=== PATIENT | female | born 1970 | race Caucasian/White ===

== ENCOUNTER 2018-03-15 07:23 | Emergency (ER) | payer SELFPAY ==
[~2018-03-15] VITALS: Ht 170.2 cm; Wt 80.0 kg
[~2018-03-15 07:23] MED LIST: ASPI325T PO; AUGM875T PO; CARV12.5 PO; FURO1TAB93 PO; LISI5 PO; POTA-243 PO
[2018-03-15 07:29] VITALS: BP 138/87; PULSE 100; RESP 18; TEMP 97.7; O2SAT 99
[2018-03-15 07:40] VITALS: BP_SYST 124; BP_SYST 138; BP_DIAS 79; BP_DIAS 87; PULSE 77; RESP 18; O2SAT 98
[2018-03-15] MEDS ORDERED: SODIUM CHLORIDE 0.9% FLUSH 10 ML FLUSH IVF PRN (07:45)
[2018-03-15 07:49] VITALS: BP_SYST 124; BP_SYST 138; BP_DIAS 79; BP_DIAS 87; PULSE 100; RESP 18; O2SAT 99
--- NOTE | 2018-03-15 07:51 | PD ---
HPI Chief Complaint: Cardiac Complaint Time Seen by Provider: 07:39 Travel History International Travel<30 days: No Contact w/Intl Traveler<30days: No Traveled to known affect area: No History of Present Illness HPI 47 y/o female presents stating she has been feeling off for the past couple months but it has been worse over the past couple weeks. She thought it was related to her anxiety but today when her defibrillator went off now she is not sure. She states that she felt like her heart was beating fast before it went off. She states after when off she developed some chest pain and was given aspirin and nitroglycerin. She denies any other concurrent complaints at this time. She states her last heart workup was when she was here. She states her smoke jumper is now Dr. Skinner. She denies specific modifying factors. Quality is palpitations. Severity is progressive. Duration is couple of weeks. PFSH Past Medical History Hx Anticoagulant Therapy: Yes (ASA) Anxiety: Yes Heart Rhythm Problems: Yes Cardiovascular Problems: Yes (PT HAS A DEFRIBILATOR) Congestive Heart Failure: Yes Coronary Artery Disease: No Diabetes: No Diminished Hearing: No Hypertension: Yes Tetanus Vaccination: > 5 Years Influenza Vaccination: No ?: Not LMP: 03/16/2018 : 4 Para: 2 Past Surgical History Abdominal Surgery: Yes () Cardiac Surgery: Yes Section: Yes Social History Alcohol Use: No Tobacco Use: Yes Substance Use: No Allergies-Medications (Allergen,Severity, Reaction): Coded Allergies: No Known Allergies (Verified , 02/21/16) Reported Meds & Prescriptions Reported Meds & Active Scripts Active Reported Aspirin 81 Mg Chew 81 Mg PO DAILY Spironolactone 25 Mg Tab 25 Mg PO DAILY Coreg (Carvedilol) 12.5 Mg Tab 25 Mg PO BID Lasix (Furosemide) 20 Mg Tab 20 Mg PO DAILY Review of Systems Except as stated in HPI: all other systems reviewed are Neg Physical Exam Narrative GENERAL: 47-year-old female in no apparent distress SKIN: Focused skin assessment warm/dry. HEAD: Atraumatic. Normocephalic. EYES: Pupils equal and round. No scleral icterus. No injection or drainage. ENT: No nasal bleeding or discharge. Mucous membranes pink and moist. NECK: Trachea midline. No JVD. CARDIOVASCULAR: Regular rate and rhythm. No murmur appreciated. RESPIRATORY: No accessory muscle use. Clear to auscultation. Breath sounds equal bilaterally. GASTROINTESTINAL: Abdomen soft, non-tender, nondistended. MUSCULOSKELETAL: No obvious deformities. No clubbing. No cyanosis. No edema. NEUROLOGICAL: Awake and alert. No obvious cranial nerve deficits. Motor grossly within normal limits. Normal speech. Data Data Last Documented VS Vital Signs Date Time Temp Pulse Resp B/P (MAP) Pulse Ox O2 Delivery O2 Flow Rate FiO2 03/15/18 09:00 97.7 64 18 129/75 (93) 97 Room Air Orders Orders Electrocardiogram (03/15/18 07:39) B-Type Natriuretic Peptide (03/15/18 07:39) Ckmb (Isoenzyme) Profile (03/15/18 07:39) Complete Blood Count With Diff (03/15/18 07:39) Comprehensive Metabolic Panel (03/15/18 07:39) Magnesium (Mg) (03/15/18 07:39) Prothrombin Time / Inr (Pt) (03/15/18 07:39) Act Partial Throm Time (Ptt) (03/15/18 07:39) Troponin I (03/15/18 07:39) Chest, Single Ap (03/15/18 07:39) Ecg Monitoring (03/15/18 07:39) Bilateral Bp Monitoring (03/15/18 07:39) Iv Access Insert/Monitor (03/15/18 07:39) Oximetry (03/15/18 07:39) Sodium Chloride 0.9% Flush (Ns Flush) (03/15/18 07:45) Ed Discharge Order (03/15/18 10:23) Labs Laboratory Tests Test 03/15/18 07:40 White Blood Count 9.6 TH/MM3 Red Blood Count 5.12 MIL/MM3 Hemoglobin 14.6 GM/DL Hematocrit 43.5 % Mean Corpuscular Volume 85.0 FL Mean Corpuscular Hemoglobin 28.6 PG Mean Corpuscular Hemoglobin Concent 33.6 % Red Cell Distribution Width 13.6 % Platelet Count 199 TH/MM3 Mean Platelet Volume 9.9 FL Neutrophils (%) (Auto) 57.5 % Lymphocytes (%) (Auto) 32.1 % Monocytes (%) (Auto) 5.5 % Eosinophils (%) (Auto) 3.9 % Basophils (%) (Auto) 1.0 % Neutrophils # (Auto) 5.5 TH/MM3 Lymphocytes # (Auto) 3.1 TH/MM3 Monocytes # (Auto) 0.5 TH/MM3 Eosinophils # (Auto) 0.4 TH/MM3 Basophils # (Auto) 0.1 TH/MM3 CBC Comment DIFF FINAL Differential Comment Prothrombin Time 11.2 SEC Prothromb Time International Ratio 1.1 RATIO Activated Partial Thromboplast Time 29.3 SEC Blood Urea Nitrogen 8 MG/DL Creatinine 1.00 MG/DL Random Glucose 154 MG/DL Total Protein 7.3 GM/DL Albumin 3.8 GM/DL Calcium Level 8.3 MG/DL Magnesium Level 1.8 MG/DL Alkaline Phosphatase 87 U/L Aspartate Amino Transf (AST/SGOT) 12 U/L Alanine Aminotransferase (ALT/SGPT) 22 U/L Total Bilirubin 0.8 MG/DL Sodium Level 138 MEQ/L Potassium Level 3.7 MEQ/L Chloride Level 106 MEQ/L Carbon Dioxide Level 17.7 MEQ/L Anion Gap 14 MEQ/L Estimat Glomerular Filtration Rate 59 ML/MIN Total Creatine Kinase 32 U/L Troponin I 0.03 NG/ML B-Type Natriuretic Peptide 34 PG/ML MDM Medical Decision Making Medical Screen Exam Complete: Yes Emergency Medical Condition: Yes Medical Record Reviewed: Yes (Past history confirmed, 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 Stable examination. Differential Diagnosis V. tach, SVT, A. fib with RVR Narrative Course Will check blood work, chest x-ray and have her pacemaker interrogated. Patient states this is the first time and has gone off [facility] states patient had shock for V. fib discriminatory zone as her heart rate went over 230. He states this is the first time that she was shocked and it was 1 time. appears sinus on strip, will discuss with dr brody skinner talked with [facility] and states can go home, Patient denies any new complaints and states that they are feeling better. Patient happy with care, all questions answered. Patient knows that follow up is incumbent on them and to return to the emergency room immediately if new or worsening symptoms develop. Patient given strict return precautions, vitals reviewed and are normal , agrees to further workup as an outpatient. Physician Communication Physician Communication dr skinner states to increase coreg to 25 mg bid and will see in office this week Diagnosis Primary Impression: Tachycardia Additional Impression: AICD discharge Patient Instructions: General Instructions Additional Instructions: increase Coreg to 25 mg twice a day, your current pill will be 2 pills twice a day, return as needed, follow with dr skinner as scheduled Med/Other Pt SpecificInfo: Existing Med Changed Disposition: DISCHARGE HOME Condition: Stable Julieta Guadarrama MD Mar 15, 2018 07:51
[2018-03-15 08:04] LABS: AUTOMATED NEUTROPHIL # 5.5 TH/MM3 (1.8-7.7); BASOPHIL # 0.1 TH/MM3 (0-0.2); EOSINOPHIL # 0.4 TH/MM3 (0-0.4); EOSINOPHIL % 3.9 % (0.0-4.0); HEMATOCRIT 43.5 % (35.0-46.0); HEMOGLOBIN 14.6 GM/DL (11.6-15.3); LYMPH % 32.1 % (9.0-44.0); LYMPHOCYTE # 3.1 TH/MM3 (1.0-4.8); MEAN CORPUSCULAR HEMOGLOBIN 28.6 PG (27.0-34.0); MEAN CORPUSCULAR HGB CONC 33.6 % (32.0-36.0); MEAN PLATELET VOLUME 9.9 FL (7.0-11.0); MONO % 5.5 % (0.0-8.0); MONOCYTE # 0.5 TH/MM3 (0-0.9); NEUT % 57.5 % (16.0-70.0); PLATELET COUNT 199 TH/MM3 (150-450); RED BLOOD COUNT 5.12 MIL/MM3 (4.00-5.30); RED CELL DISTRIBUTION WIDTH 13.6 % (11.6-17.2); WHITE BLOOD COUNT 9.6 TH/MM3 (4.0-11.0)
[2018-03-15] MEDS ORDERED: FURO1TAB62 PO (08:09)
[2018-03-15] MEDS ORDERED: CARV12.5 PO (08:09)
[2018-03-15] MEDS ORDERED: ASPI-183 PO (08:09)
[2018-03-15] MEDS ORDERED: SPIR25TA PO (08:09)
[2018-03-15 08:11] LABS: INTERNATIONAL NORMALIZED RATIO 1.1 RATIO; PROTHROMBIN TIME - PATIENT 11.2 SEC (9.8-11.6)
[2018-03-15] MEDS ORDERED: ASPI-516 PO (08:12)
[2018-03-15 08:22] LABS: ALBUMIN 3.8 GM/DL (3.4-5.0); AST (GOT) 12 U/L (15-37); BICARBONATE 17.7 MEQ/L (21.0-32.0); BLOOD UREA NITROGEN 8 MG/DL (7-18); CALCIUM 8.3 MG/DL (8.5-10.1); CHLORIDE 106 MEQ/L (98-107); GLOMERULAR FILTRATION RATE 59 ML/MIN (>89); GLUCOSE,RANDOM 154 MG/DL (74-106); MAGNESIUM 1.8 MG/DL (1.5-2.5); SODIUM (NA) 138 MEQ/L (136-145)
[2018-03-15 08:27] LABS: ALKALINE PHOSPHATASE 87 U/L (45-117); ALT (GPT) 22 U/L (10-53); TOTAL BILIRUBIN ADULT 0.8 MG/DL (0.2-1.0); TOTAL PROTEIN 7.3 GM/DL (6.4-8.2); TROPONIN I 0.03 NG/ML (0.02-0.05)
[2018-03-15 09:00] VITALS: BP 129/75; PULSE 64; RESP 18; TEMP 97.7; O2SAT 97
--- NOTE | 2018-03-15 09:01 | RADRPT ---
EXAM DATE: 03/15/2018 8:35 AM EDT AGE/SEX: 47 years / Female INDICATIONS: Patient states her defibrillator shocked her this morning, denies chest pain or shortne ss of breath, has a little vertigo CLINICAL DATA: This is the patient's initial encounter. Patient reports that signs and symptoms have been present for 1 day and indicates a pain score of 1/10. MEDICAL/SURGICAL HISTORY: Congestive heart failure. history of V-tach . defibrillator placed 3 years ago [place] [facility] [place]. . FINDINGS: A single AP view of the chest demonstrates the lungs to be symmetrically aerated without evidence of mass, infiltrate or effusion. No evidence of pneumothorax. The cardiomediastinal contours are unremar kable. Osseous structures are intact. There is a defibrillator device overlying the left chest. No s ignificant changes compared to the prior exam. CONCLUSION: No acute intrathoracic disease. Stable examination. Electronically signed by: Lance Byrnes MD 03/15/2018 8:59 AM EDT
[2018-03-15 10:30] VITALS: BP 124/77; TEMP 97.8
--- NOTE | 2018-03-15 17:17 | EKG ---
Date Performed: 03/15/2018 Time Performed: 07:30:41 PTAGE: 47 years EKG: Sinus rhythm LOW QRS VOLTAGE IN EXTREMITY LEADS MODERATE ST DEPRESSION ABNORMAL ECG PREVIOUS TRACING 04/24/15 @ 12.33 Since the previous tracing, no significant change noted DOCTOR: Ashutosh Shirley Interpretating Date/Time 03/15/2018 17:15:58
== END 2018-03-15 10:30 | disposition home or self-care (01) ==
LOC: NEPE 07:23
DX: R00.0 Tachycardia, unspecified (principal); R94.31 Abnormal electrocardiogram [ECG] [EKG]; F41.9 Anxiety disorder, unspecified; I11.0 Hypertensive heart disease with heart failure; I50.9 Heart failure, unspecified; Z95.810 Presence of automatic (implantable) cardiac defibrillator; Z79.82 Long term (current) use of aspirin; Z79.899 Other long term (current) drug therapy; Z72.0 Tobacco use
CPT/HCPCS: 71045; 80053; 82550; 83735; 83880; 84484; 85025; 85610; 85730; 93005

== ENCOUNTER 2018-03-15 21:59 | Emergency (ER) | payer OTHER ==
[~2018-03-15] VITALS: Ht 170.2 cm; Wt 73.0 kg
[~2018-03-15 21:59] MED LIST changes: +ASPI-183 PO; +ASPI-516 PO; +FURO1TAB62 PO; +SPIR25TA PO
[2018-03-15 22:07] VITALS: BP 138/91; PULSE 68; RESP 16; TEMP 98; O2SAT 97
[2018-03-15] MEDS ORDERED: SODIUM CHLORIDE 0.9% FLUSH 10 ML FLUSH IVF PRN (22:15)
[2018-03-15] MEDS ORDERED: ASPIRIN 81 MG CHEW TAB PO ONE (22:15)
--- NOTE | 2018-03-15 22:17 | PD ---
HPI Chief Complaint: Medical Clearance Time Seen by Provider: 22:10 Travel History International Travel<30 days: No Contact w/Intl Traveler<30days: No Traveled to known affect area: No History of Present Illness HPI 47-year-old female presents to the emergency department from home by EMS transport for evaluation of anxiety diaphoresis sweating of her palms and hands without chest pain. Patient states she has a pacemaker defibrillator that was placed 3 years ago and is followed by chief nursing executive Dr. Bush. Patient was seen earlier today for same complaint and shortly thereafter onset of symptoms was defibrillated. Patient was identified by [facility] loan servicing representative to had an episode of ventricular tachycardia that did receive a sustained defibrillation with a rate of 230. Patient had resolution of symptoms. Patient's case was discussed with her chief nursing executive Dr. Bush who also discussed the case with the [facility] wrap and the plan was to increase her Coreg from 12.5 mg twice daily to 25 mg twice daily. Patient states she did take 25 mg of Coreg this morning and took her evening dose of Coreg. Patient also took a dose of Lorazepam 0.25 mg. Patient states still felt anxious until paramedics arrived and then in route to the hospital patient noted that her symptoms of diaphoresis and palpitations seem to have resolved. Ongoing tobacco use. Patient is unable to identify exacerbating or alleviating factors. Patient has no chest pain at this time no shortness of breath at this time does not feel palpitations at this time has no diaphoresis at this time. Patient's had no recent illness long distance travel protracted bedrest. Patient has no clotting disorder. Patient has no fever chills. Patient is scheduled to see her chief nursing executive on . [facility] Past Medical History Narrative Medical Anxiety pacemaker defibrillator dilated cardiomyopathy hypertension ; tobacco use; nursing notes reviewed Hx Anticoagulant Therapy: Yes (ASA) Anxiety: Yes Heart Rhythm Problems: Yes Cardiovascular Problems: Yes (PT HAS A DEFRIBILATOR) Congestive Heart Failure: Yes Coronary Artery Disease: No Diabetes: No Diminished Hearing: No Hypertension: Yes ?: Not : 2 Para: 1 Past Surgical History Abdominal Surgery: Yes () Cardiac Surgery: Yes (DEFRIBILATION) Section: Yes (X 1) Gynecologic Surgery: Yes Social History Alcohol Use: No Tobacco Use: Yes (10 CIGARRETES WEEK) Substance Use: No Allergies-Medications (Allergen,Severity, Reaction): Coded Allergies: No Known Allergies (Verified Adverse Reaction, Unknown, 03/15/18) Reported Meds & Prescriptions Reported Meds & Active Scripts Active Reported Aspirin 81 Mg Chew 81 Mg PO DAILY Spironolactone 25 Mg Tab 25 Mg PO DAILY Coreg (Carvedilol) 12.5 Mg Tab 25 Mg PO BID Lasix (Furosemide) 20 Mg Tab 20 Mg PO DAILY Review of Systems Except as stated in HPI: all other systems reviewed are Neg Physical Exam Narrative GENERAL: Well-developed well-nourished female no acute distress no respiratory distress SKIN: Warm and dry. HEAD: Normocephalic. EYES: No scleral icterus. No injection or drainage. NECK: Supple, trachea midline. No JVD or lymphadenopathy. CARDIOVASCULAR: Regular rate and rhythm without murmurs, gallops, or rubs. RESPIRATORY: Breath sounds equal bilaterally. No accessory muscle use. GASTROINTESTINAL: Abdomen soft, non-tender, nondistended. MUSCULOSKELETAL: No cyanosis, or edema. BACK: Nontender without obvious deformity. No CVA tenderness. Data Data Last Documented VS Vital Signs Date Time Temp Pulse Resp B/P (MAP) Pulse Ox O2 Delivery O2 Flow Rate FiO2 03/15/18 22:07 98.0 68 16 138/91 (107) 97 Orders Orders Electrocardiogram (03/15/18 22:10) Basic Metabolic Panel (Bmp) (03/15/18 22:10) B-Type Natriuretic Peptide (03/15/18 22:10) Ckmb (Isoenzyme) Profile (03/15/18 22:10) Complete Blood Count With Diff (03/15/18 22:10) Magnesium (Mg) (03/15/18 22:10) Prothrombin Time / Inr (Pt) (03/15/18 22:10) Act Partial Throm Time (Ptt) (03/15/18 22:10) Troponin I (03/15/18 22:10) Chest, Single Ap (03/15/18 22:10) Ecg Monitoring (03/15/18 22:10) Bilateral Bp Monitoring (03/15/18 22:10) Iv Access Insert/Monitor (03/15/18 22:10) Oximetry (03/15/18 22:10) Oxygen Administration (03/15/18 22:10) Aspirin Chew (Aspirin Chew) (03/15/18 22:15) Sodium Chloride 0.9% Flush (Ns Flush) (03/15/18 22:15) Labs Laboratory Tests Test 03/15/18 22:20 White Blood Count 10.6 TH/MM3 Red Blood Count 4.97 MIL/MM3 Hemoglobin 14.4 GM/DL Hematocrit 41.9 % Mean Corpuscular Volume 84.5 FL Mean Corpuscular Hemoglobin 29.0 PG Mean Corpuscular Hemoglobin Concent 34.4 % Red Cell Distribution Width 13.6 % Platelet Count 199 TH/MM3 Mean Platelet Volume 9.7 FL Neutrophils (%) (Auto) 54.2 % Lymphocytes (%) (Auto) 35.3 % Monocytes (%) (Auto) 7.4 % Eosinophils (%) (Auto) 2.5 % Basophils (%) (Auto) 0.6 % Neutrophils # (Auto) 5.8 TH/MM3 Lymphocytes # (Auto) 3.8 TH/MM3 Monocytes # (Auto) 0.8 TH/MM3 Eosinophils # (Auto) 0.3 TH/MM3 Basophils # (Auto) 0.1 TH/MM3 CBC Comment DIFF FINAL Differential Comment Blood Urea Nitrogen 8 MG/DL Creatinine 0.78 MG/DL Random Glucose 103 MG/DL Calcium Level 9.1 MG/DL Magnesium Level 1.9 MG/DL Sodium Level 140 MEQ/L Potassium Level 3.8 MEQ/L Chloride Level 108 MEQ/L Carbon Dioxide Level 22.6 MEQ/L Anion Gap 9 MEQ/L Estimat Glomerular Filtration Rate 78 ML/MIN Total Creatine Kinase 33 U/L Troponin I 0.08 NG/ML MDM Medical Decision Making Medical Screen Exam Complete: Yes Emergency Medical Condition: Yes Medical Record Reviewed: Yes Interpretation(s) EKG normal sinus rhythm rate [address] elevation ST segment flattening and depression inferior laterally Troponin I: 0.08, mildly elevated most likely reflects recent defibrillation from AICD pacemaker earlier today--this has been discussed with patient's chief nursing executive Last Impressions Chest X-Ray 03/15/182209 Signed Impressions: CONCLUSION: 1. No acute abnormality or interval change. CBC & BMP Diagram 03/15/18 22:20 Calcium Level 9.1 #, Magnesium Level 1.9 Vital Signs Date Time Temp Pulse Resp B/P (MAP) Pulse Ox O2 Delivery O2 Flow Rate FiO2 6/19/18 22:07 98.0 68 16 138/91 (762) 28 Differential Diagnosis Palpitations, arrhythmia, A. fib, V. 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 Bush is aware of EKG and cardiac enzyme of troponin I 0.08 electrolytes chest x-ray and recommends patient be discharged back to home and to keep her appointment with Dr. Bush in the office on ; reports that she feels troponin of 0.08 is consistent with earlier defibrillation by her pacemaker defibrillator and does not need serial enzymes. Critical Care Narrative Aggregate critical care time was 30 minutes. Time to perform other separately billable procedures was not included in the critical care time. My time did not include minutes spent treating any other patients simultaneously or on activities that did not directly contribute to the patient's treatment. The services I provided to this patient were to treat and/or prevent clinically significant deterioration that could result in: Arrhythmia, ACS, AR, I provided critical care services requiring my management, as noted below: Chart data review, documentation time, medication orders and management, vital sign assessments/reviewing monitor data, ordering and reviewing lab tests, ordering and interpreting/reviewing x-rays and diagnostic studies, care of the patient and discussion of the patient with the admitting physicians. Physician Communication Physician Communication discussed with Dr Bush--opt follow up as planned Diagnosis Primary Impression: Intermittent palpitations Additional Impression: Anxiety Referrals: Katheryn Bush MD 2 days Keep scheduled appointment Patient Instructions: General Instructions Additional Instructions: Continue current medications as presently prescribed Follow-up with Dr. Bush your chief nursing executive as scheduled on Return the emergency department for concerns or change in condition Med/Other Pt SpecificInfo: No Change to Meds Disposition: 01 DISCHARGE HOME Condition: Stable Lauren Mccormack MD Mar 15, 2018 22:17
[2018-03-15 22:41] LABS: AUTOMATED NEUTROPHIL # 5.8 TH/MM3 (1.8-7.7); BASOPHIL # 0.1 TH/MM3 (0-0.2); BASOPHIL % 0.6 % (0.0-2.0); EOSINOPHIL # 0.3 TH/MM3 (0-0.4); EOSINOPHIL % 2.5 % (0.0-4.0); HEMATOCRIT 41.9 % (35.0-46.0); HEMOGLOBIN 14.4 GM/DL (11.6-15.3); LYMPH % 35.3 % (9.0-44.0); LYMPHOCYTE # 3.8 TH/MM3 (1.0-4.8); MEAN CELL VOLUME 84.5 FL (80.0-100.0); MEAN CORPUSCULAR HGB CONC 34.4 % (32.0-36.0); MEAN PLATELET VOLUME 9.7 FL (7.0-11.0); MONO % 7.4 % (0.0-8.0); MONOCYTE # 0.8 TH/MM3 (0-0.9); NEUT % 54.2 % (16.0-70.0); PLATELET COUNT 199 TH/MM3 (150-450); RED BLOOD COUNT 4.97 MIL/MM3 (4.00-5.30); RED CELL DISTRIBUTION WIDTH 13.6 % (11.6-17.2); WHITE BLOOD COUNT 10.6 TH/MM3 (4.0-11.0)
--- NOTE | 2018-03-15 22:47 | RADRPT ---
EXAM DATE: 03/15/2018 10:44 PM EDT AGE/SEX: 47 years / Female INDICATIONS: Chest pain. CLINICAL DATA: This is the patient's initial encounter. Patient reports that signs and symptoms have been present for 1 day and indicates a pain score of 6/10. MEDICAL/SURGICAL HISTORY: . Congestive heart failure.history of V-tach . Defibrillator COMPARISON: [facility], CHEST SINGLE AP, 03/15/2018. . FINDINGS: Stable single lead AICD device. No new focal pleural or parenchymal opacities. Cardiomediastinal cont ours are within normal limits. Bony thorax is intact. CONCLUSION: 1. No acute abnormality or interval change. Electronically signed by: Amadou Yates MD 03/15/2018 10:46 PM EDT
[2018-03-15 22:50] LABS: BICARBONATE 22.6 MEQ/L (21.0-32.0); CALCIUM 9.1 MG/DL (8.5-10.1); CREATININE 0.78 MG/DL (0.50-1.00); MAGNESIUM 1.9 MG/DL (1.5-2.5)
[2018-03-15 22:53] LABS: TROPONIN I 0.08 NG/ML (0.02-0.05)
[2018-03-15 23:24] LABS: INTERNATIONAL NORMALIZED RATIO 1.1 RATIO; PROTHROMBIN TIME - PATIENT 11.2 SEC (9.8-11.6)
[2018-03-16 01:13] VITALS: BP 129/74
--- NOTE | 2018-03-16 13:56 | EKG ---
Date Performed: 03/15/2018 Time Performed: 22:14:35 PTAGE: 47 years EKG: Sinus rhythm MODERATE ST DEPRESSION ABNORMAL ECG PREVIOUS TRACING : 03/15/2018 07.30 DOCTOR: Bryan Arellano Interpretating Date/Time 03/16/2018 13:54:31
== END 2018-03-16 01:14 | disposition home or self-care (01) ==
LOC: NEPC 21:59
DX: R00.2 Palpitations (principal); F41.9 Anxiety disorder, unspecified; Z95.810 Presence of automatic (implantable) cardiac defibrillator; I11.0 Hypertensive heart disease with heart failure; F17.210 Nicotine dependence, cigarettes, uncomplicated; R94.31 Abnormal electrocardiogram [ECG] [EKG]
CPT/HCPCS: 71045; 80048; 82550; 83735; 83880; 84484; 85025; 85610; 85730; 93005

== ENCOUNTER 2018-08-16 16:23 | Observation (INO) ==
--- NOTE | 2018-08-16 16:38 | ED ---
HPI General Chief Complaint: Arrhythmia / Palpitations Stated Complaint: cardiac.evac Time Seen by Provider: 08/16/18 16:32 Source: patient and EMS Mode of arrival: EMS Limitations: no limitations History of Present Illness The patient is a 47-year-old female with history of CHF, A. fib and a cardiac defibrillator in place that was brought in by EMS for evaluation after she was shocked 3 consecutive times by her defibrillator in addition to one more on the way here while in EMS. Patient stated that she was having palpitations and then she was shocked. She denies any chest pain but states that she does have some shortness of breath. No other complaints at this time. MD Complaint: Reports shortness of breath Onset (ago): hour(s) (1) Context: Denies recent illness, occurred during exertion and medication noncompliance Severity: similar to previous episodes Consistency/Duration: now resolved Associated symptoms: Reports palpitations and lightheadedness; Denies chest pain , cough, wheezing, orthopnea, paresthesias, diaphoresis, nausea/vomiting, syncope, chest congestion and dizziness Treatment prior to arrival: Reports none Related Data Home Medications Medication Instructions Recorded Confirmed alprazolam [Xanax] 0.25 mg PO TID PRN 05/26/18 08/16/18 carvedilol [Coreg] 18.75 mg PO BID 05/26/18 08/16/18 furosemide [Lasix] 20 mg PO DAILY 05/26/18 08/16/18 lisinopril 5 mg PO DAILY 05/26/18 08/16/18 rivaroxaban [Xarelto] 20 mg PO DAILY 05/26/18 08/16/18 spironolactone 25 mg PO DAILY 05/26/18 08/16/18 Allergies Allergy/AdvReac Type Severity Reaction Status Date / Time No Known Allergies Allergy Verified 07/12/18 16:45 Review of Systems ROS: all other systems reviewed are negative PMFSH History History Provided By: Patient, Medical Record and Director Of Food And Beverage Services / EMT Medical History Medical History Cardiomyopathy (Acute) Mitral regurgitation (Acute) CHF (congestive heart failure) (Acute) Cardiac defibrillator in place (Acute) History of atrial fibrillation (Acute) History of ventricular tachycardia (Acute) Hypertension (Acute) Surgical History Surgical History Hx of section (Acute) Family History Family History Mother Heart problem Father Heart problem Social History Social History Substance History: No History of Abuse Smoking Status: Former smoker (Quit 2016) How Often Do You Have a Drink Containing Alcohol: Never Recent Travel in [facility] within the Last 8 Weeks: No Recent Out of Country Travel within the Last 8 Weeks: No Exam Narrative Exam Narrative: GENERAL: Alert and oriented no distress SKIN: Focused skin assessment warm/dry. HEAD: Atraumatic. Normocephalic. EYES: Pupils equal and round. No scleral icterus. No injection or drainage. ENT: No nasal bleeding or discharge. Mucous membranes pink and moist. NECK: Trachea midline. No JVD. CARDIOVASCULAR: Regular rate and rhythm. No murmur appreciated. RESPIRATORY: No accessory muscle use. Clear to auscultation. Breath sounds equal bilaterally. GASTROINTESTINAL: Abdomen soft, non-tender, nondistended. Hepatic and splenic margins not palpable. MUSCULOSKELETAL: No obvious deformities. No clubbing. No cyanosis. No edema. NEUROLOGICAL: Awake and alert. No obvious cranial nerve deficits. Motor grossly within normal limits. Normal speech. PSYCHIATRIC: Appropriate mood and affect; insight and judgment normal. Course Reevaluation(s) Reevaluation #1: Really no distress hemodynamically stable sinus rhythm on the monitor. [facility] defibrillator interrogated is at bedside. Time: 16:56 Initial Documented Vital Signs Temperature 98.3 F 08/16/18 16:30 Pulse Rate 85 08/16/18 16:30 Respiratory Rate 20 08/16/18 16:30 Blood Pressure 127/75 08/16/18 16:30 Pulse Oximetry 100 08/16/18 16:30 Last Documented Vital Signs Temperature 98.3 F 08/16/18 16:30 Pulse Rate 85 08/16/18 16:30 Respiratory Rate 20 08/16/18 16:40 Blood Pressure 127/75 08/16/18 16:30 Pulse Oximetry 100 08/16/18 16:30 Medical Decision Making MDM Narrative Medical decision making narrative: His defibrillator was interrogated and appears that the patient had 3 shocks today secondary to A. fib with RVR and [place] II 130 bpm. Hemodynamically stable with a rate in the 80s normal sinus rhythm mild hypokalemia of 3.4 will replace with p.o. by admitting team troponin was 0.03 and CK 40. Placed under under observation Medical Screen Exam Complete: Yes Emergency Medical Condition: Yes Medical Records Medical records reviewed: Yes I reviewed the patient's medical records. Lab Data Lab results reviewed: Yes I reviewed the patient's lab results. Result diagrams: 08/16/18 16:36 08/16/18 16:36 Lab Results 08/16/18 08/16/18 08/16/18 Range/Units 16:36 16:36 16:36 WBC 7.0 (4.0-11.0) th/mm3 RBC 4.61 (4.00-5.30) mil/mm3 Hgb 13.7 (11.6-15.3) gm/dL Hct 40.4 (35.0-46.0) % MCV 87.6 (80.0-100.0) fL MCH 29.6 (27.0-34.0) pg MCHC 33.8 (32.0-36.0) % RDW 13.3 (11.6-17.2) % Plt Count 167 (150-450) th/mm3 MPV 10.4 (7.0-11.0) fL Neut % (Auto) 51.5 (16.0-70.0) % Lymph % (Auto) 37.2 (9.0-44.0) % [place] % (Auto) 6.2 (0.0-8.0) % Eos % (Auto) 4.4 H (0.0-4.0) % Baso % (Auto) 0.7 (0.0-2.0) % Neut # (Auto) 3.6 (1.8-7.7) th/mm3 Lymph # (Auto) 2.6 (1.0-4.8) th/mm3 [place] # (Auto) 0.4 (0.0-0.9) th/mm3 Eos # (Auto) 0.3 (0.0-0.4) th/mm3 Baso # (Auto) 0.1 (0.0-0.2) th/mm3 WBC Differential . Differential Comment Auto diff final PT 14.4 H (9.8-11.6) sec INR 1.4 Ratio APTT 41.5 H (23.4-31.7) sec Sodium 136 (136-145) meq/L Potassium 3.4 L (3.5-5.1) meq/L Chloride 103 (98-107) meq/L Carbon Dioxide 25.5 (21.0-32.0) meq/L Anion Gap 8 (5-15) meq/L BUN 14 (7-18) mg/dL Creatinine 1.02 H (0.50-1.00) mg/dL Estimated GFR 58 L (>89) mL/min Random Glucose 161 H (74-106) mg/dL Calcium 8.9 (8.5-10.1) mg/dL Total Creatine Kinase (26-192) U/L Troponin I (0.02-0.05) ng/mL B-Natriuretic Peptide (0-100) pg/mL 08/16/18 08/16/18 Range/Units 16:36 16:36 WBC (4.0-11.0) th/mm3 RBC (4.00-5.30) mil/mm3 Hgb (11.6-15.3) gm/dL Hct (35.0-46.0) % MCV (80.0-100.0) fL MCH (27.0-34.0) pg MCHC (32.0-36.0) % RDW (11.6-17.2) % Plt Count (150-450) th/mm3 MPV (7.0-11.0) fL Neut % (Auto) (16.0-70.0) % Lymph % (Auto) (9.0-44.0) % [place] % (Auto) (0.0-8.0) % Eos % (Auto) (0.0-4.0) % Baso % (Auto) (0.0-2.0) % Neut # (Auto) (1.8-7.7) th/mm3 Lymph # (Auto) (1.0-4.8) th/mm3 [place] # (Auto) (0.0-0.9) th/mm3 Eos # (Auto) (0.0-0.4) th/mm3 Baso # (Auto) (0.0-0.2) th/mm3 WBC Differential Differential Comment PT (9.8-11.6) sec INR Ratio APTT (23.4-31.7) sec Sodium (136-145) meq/L Potassium (3.5-5.1) meq/L Chloride (98-107) meq/L Carbon Dioxide (21.0-32.0) meq/L Anion Gap (5-15) meq/L BUN (7-18) mg/dL Creatinine (0.50-1.00) mg/dL Estimated GFR (>89) mL/min Random Glucose (74-106) mg/dL Calcium (8.5-10.1) mg/dL Total Creatine Kinase 40 (26-192) U/L Troponin I 0.03 (0.02-0.05) ng/mL B-Natriuretic Peptide 26 (0-100) pg/mL Imaging Data Radiologist's impression: Chest X-Ray 08/16/18 16:33 CONCLUSION: Stable appearance with no acute cardiopulmonary disease. ECG Data EKG Prior to Arrival: Yes Attestation: I personally reviewed and interpreted this ECG as follows: Interpretation: NSR [address]-T wave abnormalities, MT interval 156 ms, QTc 414 ms, no signs of acute ischemia. Discharge Plan Discharge Disposition Patient Disposition: 30 Still Patient Discharge Condition Condition: Stable Discharge Details Diagnosis: Shockable heart rhythm detected by automated external defibrillator, Atrial fibrillation with RVR Physicians Team ED Provider: Ventura Martin Primary Care Provider: UNKNOWN, Attending Provider: Thony Calderon Other Providers: Katheryn Bush I Discharge Interventions Interventions: Vital Signs Last Done: 08/16/18 16:40 Status ED Status: Admitted Observation Patient
--- NOTE | 2018-08-16 16:53 | XR ---
EXAM DATE: 08/16/2018 4:48 PM EST AGE/SEX: 47 years / Female INDICATIONS: Defibrillator shock 3 times today. CLINICAL DATA: This is the patient's initial encounter. Patient reports that signs and symptoms have been present for 1 day and indicates a pain score of 0/10. MEDICAL/SURGICAL HISTORY: Hypertension. Congestive heart failure. Afib. . Defibrillator. COMPARISON: [facility], CHEST 1V SINGLE AP, 07/12/2018. . FINDINGS: A single AP view of the chest demonstrates the lungs to be symmetrically aerated without evidence of mass, infiltrate or effusion. The cardiomediastinal contours are unremarkable. Osseous structures a re intact. The left-sided transvenous pacer remains in place. CONCLUSION: Stable appearance with no acute cardiopulmonary disease. Electronically signed by: Angus Grady MD 08/16/2018 4:51 PM EST
[2018-08-16 17:02] LABS: Baso # (Auto) 0.1 th/mm3 (0.0-0.2); Baso % (Auto) 0.7 % (0.0-2.0); Eos # (Auto) 0.3 th/mm3 (0.0-0.4); Eos % (Auto) 4.4 % (0.0-4.0); Hematocrit 40.4 % (35.0-46.0); Hemoglobin 13.7 gm/dL (11.6-15.3); Lymph # (Auto) 2.6 th/mm3 (1.0-4.8); Lymph % (Auto) 37.2 % (9.0-44.0); Mean Corpuscular HGB Conc 33.8 % (32.0-36.0); Mean Corpuscular Hemoglobin 29.6 pg (27.0-34.0); Mean Corpuscular Volume 87.6 fL (80.0-100.0); Mean Platelet Volume 10.4 fL (7.0-11.0); Mono # (Auto) 0.4 th/mm3 (0.0-0.9); Mono % (Auto) 6.2 % (0.0-8.0); Neut # (Auto) 3.6 th/mm3 (1.8-7.7); Neut % (Auto) 51.5 % (16.0-70.0); Platelet Count 167 th/mm3 (150-450); Red Blood Count 4.61 mil/mm3 (4.00-5.30); Red Cell Distribution Width 13.3 % (11.6-17.2)
[2018-08-16 17:14] LABS: Calcium 8.9 mg/dL (8.5-10.1); Carbon Dioxide 25.5 meq/L (21.0-32.0); Potassium 3.4 meq/L (3.5-5.1)
[2018-08-16 17:18] LABS: Troponin I 0.03 ng/mL (0.02-0.05)
[2018-08-16 17:30] LABS: Activated Partial Thrombo Time 41.5 sec (23.4-31.7); INR 1.4 Ratio; Prothrombin Time 14.4 sec (9.8-11.6)
--- NOTE | 2018-08-16 18:16 | P.HP ---
History of Present Illness Service: [facility] Primary Care Physician: UNKNOWN Chief Complaint: "I was shocked" History of Present Illness: 47-year-old female with past medical history significant for cardiomyopathy status post AICD placement in 2014, ventricular fibrillation, MVR, CHF, HTN, and anxiety who presents to the emergency department via EV[facility] after being shocked by defibrillator 3 times at home. Patient reports that recently she has been under some stress since her son is requiring rehab and she has been trying to assist with arrangements. She reports that she was on the phone and shortly prior to being shot felt dizziness, lightheadedness and could feel her heart "speeding up". Patient states that early in the day she was also having some palpitations and attempted to take off of the Coreg however this did not stop AICD shock. She reports she has been having on and off shocks as well as what she describes as "weird sensations in my chest that are hard to describe". She states that it feels like there is "a basketball game going on in my chest " she also reports teeth and jaw pain when she has palpitations and feelings of her heart speeding up. Her cloth bleaching range back tender is Dr. Katheryn Bush and she was last seen in May and was due to follow-up with her again in August. She reports that ever since February of this year she feels that palpitations are more frequent and has noticed a trend that occurs between 2 and 7 PM. She reports being compliant with her medications. Denies any shortness of breath, chest pain, recent illnesses, nausea, vomiting or jaw pain. - Diagnosis (1) Shockable heart rhythm detected by automated external defibrillator (2) Heart palpitations (3) Dizziness (4) CHF (congestive heart failure) Review of Systems All other systems reviewed negative except as stated in [facility] - History History Provided By: Patient, Medical Record, Logistics Director / EMT - Medical History Medical History: Medical History (Last Reviewed 08/16/18 @ 18:16 by Harriet Steinberg) Cardiomyopathy Mitral regurgitation CHF (congestive heart failure) Cardiac defibrillator in place History of atrial fibrillation History of ventricular tachycardia Hypertension - Surgical History Surgical History: Surgical History (Last Reviewed 08/16/18 @ 18:16 by Harriet Steinberg) Hx of section - Family History Family History: Family History (Last Updated 08/16/18 @ 18:19 by Harriet Steinberg) Mother Heart problem Father Heart problem - Social History I have reviewed the patient's Social History: Yes - Tobacco History Tobacco Use In Past 30 Days: No Smoking Status: Former smoker (Quit 2015) - Alcohol History How Often Do You Have a Drink Containing Alcohol: Never - Substance Use History Substance History: No History of Abuse - Travel History Recent Travel in the [place] Within the Last 8 Weeks: No Recent Travel Out of the Country Within the Last 8 Weeks: No - Immunization History Tetanus Immunization: Unsure Medications and Allergies Allergies Allergy/AdvReac Type Severity Reaction Status Date / Time No Known Allergies Allergy Verified 07/12/18 16:45 Home Medications Medication Instructions Recorded Confirmed Type alprazolam [Xanax] 0.25 mg PO TID PRN 05/26/18 08/16/18 History carvedilol [Coreg] 18.75 mg PO BID 05/26/18 08/16/18 History furosemide [Lasix] 20 mg PO DAILY 05/26/18 08/16/18 History lisinopril 5 mg PO DAILY 05/26/18 08/16/18 History rivaroxaban [Xarelto] 20 mg PO DAILY 05/26/18 08/16/18 History spironolactone 25 mg PO DAILY 05/26/18 08/16/18 History Exam Vital signs: Vital Signs 08/16/18 16:30 08/16/18 16:40 Temperature 98.3 F Pulse Rate 85 Respiratory Rate 20 20 Blood Pressure 127/75 Pulse Oximetry 100 Intake & Output 08/15/18 08/16/18 08/16/18 18:59 06:59 18:59 Weight 72.575 kg Narrative: GENERAL: Developed, well-nourished female in no acute distress. SKIN: Warm and dry. HEAD: Atraumatic. Normocephalic. EYES: Pupils equal and round. No scleral icterus. No injection or drainage. ENT: No nasal bleeding or discharge. Mucous membranes pink and moist. NECK: Trachea midline. No JVD. CARDIOVASCULAR: Regular rate and rhythm, noted on telemetry during my examination tachycardia with a regular rate and momentarily which then slows down to normal sinus rhythm. RESPIRATORY: No accessory muscle use. Clear to auscultation. Breath sounds equal bilaterally. GASTROINTESTINAL: Abdomen soft, non-tender, nondistended. + Bowel sounds MUSCULOSKELETAL: Extremities without clubbing, cyanosis, or edema. No obvious deformities. NEUROLOGICAL: Awake, alert, oriented x3. No obvious cranial nerve deficits. Motor grossly within normal limits. Five out of 5 muscle strength in the arms and legs. Normal speech. PSYCHIATRIC: Appropriate mood and affect; insight and judgment normal. Results - Labs CBC & Chem 7: 08/16/18 16:36 08/16/18 16:36 Labs: Laboratory Results - last 24 hr 08/16/18 08/16/18 08/16/18 16:36 16:36 16:36 WBC 7.0 RBC 4.61 Hgb 13.7 Hct 40.4 MCV 87.6 MCH 29.6 MCHC 33.8 RDW 13.3 Plt Count 167 MPV 10.4 Neut % (Auto) 51.5 Lymph % (Auto) 37.2 [place] % (Auto) 6.2 Eos % (Auto) 4.4 H Baso % (Auto) 0.7 Neut # (Auto) 3.6 Lymph # (Auto) 2.6 [place] # (Auto) 0.4 Eos # (Auto) 0.3 Baso # (Auto) 0.1 WBC Differential . Differential Comment Auto diff final PT 14.4 H INR 1.4 APTT 41.5 H Sodium 136 Potassium 3.4 L Chloride 103 Carbon Dioxide 25.5 Anion Gap 8 BUN 14 Creatinine 1.02 H Estimated GFR 58 L Random Glucose 161 H Calcium 8.9 Total Creatine Kinase Troponin I B-Natriuretic Peptide 08/16/18 08/16/18 16:36 16:36 WBC RBC Hgb Hct MCV MCH MCHC RDW Plt Count MPV Neut % (Auto) Lymph % (Auto) [place] % (Auto) Eos % (Auto) Baso % (Auto) Neut # (Auto) Lymph # (Auto) [place] # (Auto) Eos # (Auto) Baso # (Auto) WBC Differential Differential Comment PT INR APTT Sodium Potassium Chloride Carbon Dioxide Anion Gap BUN Creatinine Estimated GFR Random Glucose Calcium Total Creatine Kinase 40 Troponin I 0.03 B-Natriuretic Peptide 26 - Imaging Impressions Chest X-Ray 08/16/18 16:33 CONCLUSION: Stable appearance with no acute cardiopulmonary disease. Caprini VTE Risk Assessment Caprini VTE Risk Assessment: No/Low Risk (score <= 1) Caprini Risk Assessment Model: Point Value = 1 Point Value = 2 Point Value = 3 Point Value = 5 Age 41-60 Minor surgery BMI > 25 kg/m2 Swollen legs Varicose veins or History of unexplained or recurrent spontaneous Oral contraceptives or hormone replacement Sepsis (< 1 month) Serious lung disease, including pneumonia (< 1 month) Abnormal pulmonary function Acute myocardial infarction Congestive heart failure (< 1 month) History of inflammatory bowel disease Medical patient at bed rest Age 61-74 Arthroscopic surgery Major open surgery (> 45 min) Laparoscopic surgery (> 45 min) Malignancy Confined to bed (> 72 hours) Immobilizing plaster cast Central venous access Age >= 75 History of VTE Family history of VTE Factor V Leiden Prothrombin [id number] Lupus anticoagulant Anticardiolipin antibodies Elevated serum homocysteine Heparin-induced thrombocytopenia Other congenital or acquired thrombophilia Stroke (< 1 month) Elective arthroplasty Hip, pelvis, or leg fracture Acute spinal cord injury (< 1 month) Prophylaxis Regimen: Total Risk Factor Score Risk Level Prophylaxis Regimen 0-1 Low Early ambulation 2 Moderate Order ONE of the following: *Sequential Compression Device (SCD) *Heparin 5000 units SQ BID 3-4 Higher Order ONE of the following medications: *Heparin 5000 units SQ TID *Enoxaparin/Lovenox 40 mg SQ daily (WT < 150 kg, CrCl > 30 mL/min) *Enoxaparin/Lovenox 30 mg SQ daily (WT < 150 kg, CrCl > 10-29 mL/min) *Enoxaparin/Lovenox 30 mg SQ BID (WT < 150 kg, CrCl > 30 mL/min) AND/OR *Sequential Compression Device (SCD) 5 or more Highest Order ONE of the following medications: *Heparin 5000 units SQ TID (Preferred with Epidurals) *Enoxaparin/Lovenox 40 mg SQ daily (WT < 150 kg, CrCl > 30 mL/min) *Enoxaparin/Lovenox 30 mg SQ daily (WT < 150 kg, CrCl > 10-29 mL/min) *Enoxaparin/Lovenox 30 mg SQ BID (WT < 150 kg, CrCl > 30 mL/min) AND *Sequential Compression Device (SCD) Assessment and Plan - Assessment (1) Shockable heart rhythm detected by automated external defibrillator Code(s): I49.9 - Cardiac arrhythmia, unspecified Status: Acute (2) Heart palpitations Code(s): R00.2 - Palpitations Status: Acute (3) Dizziness Code(s): R42 - Dizziness and giddiness Status: Acute (4) CHF (congestive heart failure) Code(s): I50.9 - Heart failure, unspecified Status: Acute - Plan 47-year-old female with past medical history significant for cardiomyopathy status post AICD placement in 2014, ventricular fibrillation, MVR, CHF, HTN, and anxiety who presents to the emergency department via EVAC after being shocked by defibrillator 3 times at home. Cardiomyopathy s/p AICD Hx V. tach CHF, not exacerbated Atrial fibrillation, rate controlled -Echo from 2015 with EF 35-40% -Chest x-ray in ED negative, BNP 26, troponin negative, pending EKG -AICD interrogation -Consult cloth bleaching range back tender for further recommendations, appreciate assistance -Continue monitoring on telemetry for further episodes -Continue Xarelto, carvedilol, Lasix, spironolactone Hypertension -Continue home lisinopril, Coreg -BP stable, continue monitoring Hypokalemia -Provide replacements orally, check mag level Anxiety -Continue alprazolam as needed DVT prophylaxisXarelto Discussed Condition With: Patient and
[2018-08-16] MEDS ORDERED: Acetaminophen 325 MG Tablet PO PRN (18:18)
[2018-08-16] MEDS ORDERED: Bisacodyl 10 MG Supp RECTAL PRN (18:18)
[2018-08-16] MEDS ORDERED: Potassium Chloride 25 MEQ Effervescent Tablet PO ONE (18:28)
[2018-08-16] MEDS: Carvedilol 12.5 MG Tablet PO SCH (21:42)
[2018-08-16] MEDS: ALPRAZolam 0.25 MG Tablet PO PRN (23:51)
[2018-08-17] MEDS: Rivaroxaban 20 MG Tablet PO SCH (08:44)
[2018-08-17] MEDS: Carvedilol 12.5 MG Tablet PO SCH (08:44)
[2018-08-17] MEDS: Lisinopril 5 MG Tablet PO SCH (08:44)
[2018-08-17] MEDS: Furosemide 20 MG Tablet PO SCH (08:44)
[2018-08-17] MEDS: Spironolactone 25 MG Tablet PO SCH (08:44)
[2018-08-17 11:36] LABS: Calcium 8.7 mg/dL (8.5-10.1); Carbon Dioxide 27.5 meq/L (21.0-32.0); Potassium 3.7 meq/L (3.5-5.1)
--- NOTE | 2018-08-17 14:06 | P.PN ---
Subjective Interval history: Patient is seen lying quietly in bed. She tells me that she has had no further shocks but that she is still very tired from yesterday. No chest pain or shortness of breath. No nausea vomiting or diarrhea. No fever or chills. She does feel that anxiety contributes to her palpitations but states that yesterday she actually felt like she was doing well at controlling her anxiety and was surprised that she got shocked. Physical Exam Vital signs: Vital Signs 08/16/18 16:30 08/16/18 16:40 08/16/18 20:00 Temperature 98.3 F 97.8 F Pulse Rate 85 62 Respiratory Rate 20 20 17 Blood Pressure 127/75 107/69 Pulse Oximetry 100 96 08/16/18 21:40 08/16/18 23:46 08/17/18 02:15 Temperature 97.5 F L Pulse Rate 68 67 54 L Respiratory Rate 17 Blood Pressure 112/56 L 103/65 Pulse Oximetry 99 08/17/18 03:56 08/17/18 08:00 08/17/18 12:00 Temperature 98.8 F 98.8 F Pulse Rate 53 L 51 L 61 Respiratory Rate 17 16 16 Blood Pressure 103/67 115/61 103/58 L Pulse Oximetry 98 98 96 Intake & Output 08/16/18 08/17/18 08/17/18 18:59 06:59 18:59 Intake Total 240 / 240 Balance 240 / 240 Weight 72.575 kg 72.575 kg Intake: Oral 240 / 240 Other: # Voids 1 Weight On Admission 72.575 kg Narrative: GENERAL: Developed, well-nourished female in no acute distress. SKIN: Warm and dry. HEAD: Atraumatic. Normocephalic. CARDIOVASCULAR: Regular rate and rhythm. Mild chest wall tenderness. RESPIRATORY: No accessory muscle use. Clear to auscultation. Breath sounds equal bilaterally. GASTROINTESTINAL: Abdomen soft, non-tender, nondistended. + Bowel sounds MUSCULOSKELETAL: Extremities without clubbing, cyanosis, or edema. No obvious deformities. NEUROLOGICAL: Awake, alert, oriented x3. No obvious cranial nerve deficits. Motor grossly within normal limits. Five out of 5 muscle strength in the arms and legs. Normal speech. PSYCHIATRIC: Appropriate mood and affect; insight and judgment normal. Results - Labs CBC & Chem 7: 08/16/18 16:36 08/17/18 10:30 Laboratory Results - last 24 hr 08/16/18 08/16/18 08/16/18 16:36 16:36 16:36 WBC 7.0 RBC 4.61 Hgb 13.7 Hct 40.4 MCV 87.6 MCH 29.6 MCHC 33.8 RDW 13.3 Plt Count 167 MPV 10.4 Neut % (Auto) 51.5 Lymph % (Auto) 37.2 [place] % (Auto) 6.2 Eos % (Auto) 4.4 H Baso % (Auto) 0.7 Neut # (Auto) 3.6 Lymph # (Auto) 2.6 [place] # (Auto) 0.4 Eos # (Auto) 0.3 Baso # (Auto) 0.1 WBC Differential . Differential Comment Auto diff final PT 14.4 H INR 1.4 APTT 41.5 H Sodium 136 Potassium 3.4 L Chloride 103 Carbon Dioxide 25.5 Anion Gap 8 BUN 14 Creatinine 1.02 H Estimated GFR 58 L Random Glucose 161 H Calcium 8.9 Magnesium Total Creatine Kinase Troponin I B-Natriuretic Peptide 08/16/18 08/16/18 08/16/18 16:36 16:36 16:36 WBC RBC Hgb Hct MCV MCH MCHC RDW Plt Count MPV Neut % (Auto) Lymph % (Auto) [place] % (Auto) Eos % (Auto) Baso % (Auto) Neut # (Auto) Lymph # (Auto) [place] # (Auto) Eos # (Auto) Baso # (Auto) WBC Differential Differential Comment PT INR APTT Sodium Potassium Chloride Carbon Dioxide Anion Gap BUN Creatinine Estimated GFR Random Glucose Calcium Magnesium 2.0 Total Creatine Kinase 40 Troponin I 0.03 B-Natriuretic Peptide 26 08/17/18 10:30 WBC RBC Hgb Hct MCV MCH MCHC RDW Plt Count MPV Neut % (Auto) Lymph % (Auto) [place] % (Auto) Eos % (Auto) Baso % (Auto) Neut # (Auto) Lymph # (Auto) [place] # (Auto) Eos # (Auto) Baso # (Auto) WBC Differential Differential Comment PT INR APTT Sodium 141 Potassium 3.7 Chloride 107 Carbon Dioxide 27.5 Anion Gap 7 BUN 13 Creatinine 0.89 Estimated GFR 67 L Random Glucose 110 H Calcium 8.7 Magnesium Total Creatine Kinase Troponin I B-Natriuretic Peptide - Imaging Impressions Chest X-Ray 08/16/18 16:33 CONCLUSION: Stable appearance with no acute cardiopulmonary disease. Assessment and Plan - Assessment (1) Shockable heart rhythm detected by automated external defibrillator Code(s): I49.9 - Cardiac arrhythmia, unspecified Status: Acute (2) Heart palpitations Code(s): R00.2 - Palpitations Status: Acute (3) Dizziness Code(s): R42 - Dizziness and giddiness Status: Acute (4) CHF (congestive heart failure) Code(s): I50.9 - Heart failure, unspecified Status: Acute - Plan 47-year-old female with past medical history significant for cardiomyopathy status post AICD placement in 2014, ventricular fibrillation, MVR, CHF, HTN, and anxiety who presents to the emergency department via EVAC after being shocked by defibrillator 3 times at home. Cardiomyopathy s/p AICD Hx V. tach CHF, not exacerbated Atrial fibrillation, rate controlled -Echo from 2015 with EF 35-40% -AICD interrogation confirms shock x 3 for VF -Consult metal bonding crib attendant for further recommendations, appreciate assistance -Continue monitoring on telemetry for further episodes -Continue Xarelto, carvedilol, Lasix, spironolactone Hypertension -Continue home lisinopril, Coreg -(confirmed w/ pt that home dose is 18.5 mg twice daily) -BP stable, continue monitoring Hypokalemia; mild -Normalized with replacement Anxiety -Continue alprazolam as needed DVT prophylaxisXarelto Discharge planning: Likely home when cleared by cardiology
--- NOTE | 2018-08-17 15:18 | ECG ---
Date Performed: 08/16/2018 Time Performed: 16:33:26 PTAGE: 47 years EKG: NORMAL Sinus rhythm Inferior ST abnormality, possible ischemia Poor R-wave progression, probably due to lead placement. BORDERLINE ECG Looks similar to prior tracing PREVIOUS TRACING : 07/12/2018 18.08.28 DOCTOR: Juan Francisco Shaw Interpretating Date/Time 08/17/2018 15:18:33
[2018-08-17] MEDS: ALPRAZolam 0.25 MG Tablet PO PRN ×2 (16:24→23:08)
[2018-08-17] MEDS: Carvedilol 6.25 MG Tablet PO SCH (20:39)
[2018-08-17] MEDS ORDERED: Sodium Chloride 0.9% 2 ML Flush PRN IV.FLUSH (21:26)
[2018-08-17] MEDS: Amiodarone 200 MG Tablet PO SCH (23:08)
--- NOTE | 2018-08-18 07:20 | MB ---
cc: Katheryn Bush MD DATE: 08/17/2018 INDICATION: AICD shocks. HISTORY OF PRESENT ILLNESS: A 47-year-old white female well known to me from clinic with history of nonischemic cardiomyopathy and paroxysmal atrial fibrillation, who was admitted complaining of palpitations, found to be in atrial fibrillation with rapid ventricular response and is status post 3 shocks. The AICD device was checked and it was found to be working appropriately. The AICD disclosed that the patient was in atrial fibrillation with very rapid ventricular response. While in the hospital, she also has nonsustained ventricular tachycardia. Currently, she has no particular complaints other than fatigue and some chest discomfort. Her first troponin was negative. The only abnormality in her blood work was a potassium of 3.4. She has been compliant with medications and diet. PAST MEDICAL HISTORY: Nonischemic cardiomyopathy with ejection fraction of 25-30% with last echo performed in 2017, moderate mitral regurgitation, paroxysmal atrial fibrillation, ventricular tachycardia, status post AICD, COPD, hypertension. SOCIAL HISTORY: The patient quit smoking in 2014 and does not drink. PAST SURGICAL HISTORY: AICD placement and x 1. FAMILY HISTORY: Mother at age 64 with heart disease and father is alive with history of stroke. ADDITIONAL SOCIAL HISTORY: She is single and has 2 children. PHYSICAL EXAMINATION: GENERAL: She is in no acute distress. VITAL SIGNS: Her blood pressure is 103/58 mmHg, heart rate 51 beats per minute. HEAD AND NECK: Without JVD or carotid bruits. LUNGS: Clear to auscultation. HEART: Normal S1 and S2, without murmurs or gallops. ABDOMEN: Benign without visceromegaly or bruits. EXTREMITIES: Without edema. DATA: Chest x-ray within normal limits with no evidence of CHF. Blood work remarkable for a GFR of 67, potassium 3.4. Troponin negative x 1. INR 1.4. CBC was within normal limits. CARDIAC MEDICATIONS: Include: 1. Carvedilol 18.75 mg twice a day. 2. Lasix 20 mg daily. 3. Lisinopril 5 mg daily. 4. Xarelto 20 mg daily. 5. Spironolactone 25 mg daily. The AICD interrogation showed a normal function with 3 appropriate shocks for atrial fibrillation with rapid ventricular response. Her minimum heart rate is set at 40. ASSESSMENT AND PLAN: 1. Nonischemic cardiomyopathy without evidence of congestive heart failure. 2. Paroxysmal atrial fibrillation with rapid ventricular response, leading to ICD shocks x 3. 3. Hypertension, well controlled. 4. Mitral regurgitation, moderate, stable. RECOMMENDATIONS: The patient will be loaded with amiodarone. Dr. Santiago will be consulted for atrial fibrillation ablation. If the patient is stable after amiodarone loading she can be discharged home on current medications and follow up with Dr. Santiago as an outpatient. MD ES Gill/lc/do , 08:30 PM , 08:37 PM
[2018-08-18] MEDS: Rivaroxaban 20 MG Tablet PO SCH (08:39)
[2018-08-18] MEDS: Amiodarone 200 MG Tablet PO SCH ×2 (08:40→21:28)
[2018-08-18] MEDS: Lisinopril 5 MG Tablet PO SCH (08:41)
[2018-08-18] MEDS: Carvedilol 6.25 MG Tablet PO SCH ×2 (08:41→21:28)
[2018-08-18] MEDS: Spironolactone 25 MG Tablet PO SCH (08:41)
[2018-08-18] MEDS: Furosemide 20 MG Tablet PO SCH (08:41)
[2018-08-18] MEDS: Sodium Chloride 0.9% 2 ML Flush BID IV.FLUSH SCH ×2 (08:42→22:38)
--- NOTE | 2018-08-18 09:51 | P.PNCA ---
Subjective Interval history: Feels well in SR now. Proposed discharge tomorrow AF ablation planned for later. Medications and Allergies Active Medications: Active Medications Acetaminophen (Tylenol) 650 mg PO Q4H PRN PRN Reason: Temp > 100.4 Al Hydroxide/Mg Hydroxide (Milk Of Magnesia Liq) 30 ml PO Q12H PRN PRN Reason: Mild Constipation Alprazolam (Xanax) 0.25 mg PO TID PRN PRN Reason: Anxiety Last Admin: 08/17/18 23:08 Dose: 0.25 mg Amiodarone HCl (Cordarone) 400 mg PO BID [facility] Stop: 08/24/18 09:01 Last Admin: 08/18/18 08:40 Dose: 400 mg Amiodarone HCl (Cordarone) 200 mg PO DAILY [facility] Bisacodyl (Dulcolax Supp) 10 mg RECTAL DAILY PRN PRN Reason: SEVERE CONSITIPATION Carvedilol (Coreg) 18.75 mg PO BID [facility] Last Admin: 08/18/18 08:41 Dose: 18.75 mg Furosemide (Lasix) 20 mg PO DAILY [facility] Last Admin: 08/18/18 08:41 Dose: 20 mg Lactulose (Lactulose Liq) 30 ml PO DAILY PRN PRN Reason: SEVERE CONSITIPATION Lisinopril (Prinivil) 5 mg PO DAILY [facility] Last Admin: 08/18/18 08:41 Dose: 5 mg Ondansetron HCl (Zofran Inj) 4 mg IV.PUSH Q6H PRN PRN Reason: NAUSEA OR VOMITING Rivaroxaban (Xarelto) 20 mg PO DAILY [facility] Last Admin: 08/18/18 08:39 Dose: 20 mg Sennosides (Senokot) 17.2 mg PO Q12H PRN PRN Reason: Moderate Constipation Sodium Chloride (Ns Flush) 2 ml IV.FLUSH BID [facility] Last Admin: 08/18/18 08:42 Dose: 2 ml Sodium Chloride (Ns Flush) 2 ml IV.FLUSH PRN PRN PRN Reason: FLUSH AFTER USING IV ACCESS Spironolactone (Aldactone) 25 mg PO DAILY [facility] Last Admin: 08/18/18 08:41 Dose: 25 mg Allergies Allergy/AdvReac Type Severity Reaction Status Date / Time No Known Allergies Allergy Verified 07/12/18 16:45 Home Medications Medication Instructions Recorded Confirmed Type alprazolam [Xanax] 0.25 mg PO TID PRN 05/26/18 08/16/18 History carvedilol [Coreg] 18.75 mg PO BID 05/26/18 08/16/18 History furosemide [Lasix] 20 mg PO DAILY 05/26/18 08/16/18 History lisinopril 5 mg PO DAILY 05/26/18 08/16/18 History rivaroxaban [Xarelto] 20 mg PO DAILY 05/26/18 08/16/18 History spironolactone 25 mg PO DAILY 05/26/18 08/16/18 History Physical Exam Vital signs: Vital Signs 08/17/18 12:00 08/17/18 17:58 08/17/18 18:03 Temperature 98.8 F Pulse Rate 61 59 L 64 Respiratory Rate 16 Blood Pressure 103/58 L Pulse Oximetry 96 08/17/18 19:00 08/17/18 20:00 08/17/18 21:00 Temperature 98.1 F Pulse Rate 56 L 60 64 Respiratory Rate 16 Blood Pressure 116/64 Pulse Oximetry 97 08/17/18 22:00 08/17/18 23:00 08/18/18 00:00 Temperature 98.6 F Pulse Rate 58 L 58 L 60 Respiratory Rate 14 Blood Pressure 110/70 Pulse Oximetry 95 08/18/18 01:00 08/18/18 02:00 08/18/18 03:00 Temperature Pulse Rate 53 L 68 54 L Respiratory Rate Blood Pressure Pulse Oximetry 08/18/18 04:00 08/18/18 05:00 08/18/18 06:00 Temperature 98 F Pulse Rate 53 L 53 L 53 L Respiratory Rate 14 Blood Pressure 114/69 Pulse Oximetry 95 08/18/18 07:00 08/18/18 08:00 Temperature 97.6 F Pulse Rate 51 L 60 Respiratory Rate Blood Pressure 120/68 Pulse Oximetry 97 Intake & Output 08/17/18 08/18/18 08/18/18 18:59 06:59 18:59 Intake Total 240 / 240 Balance 240 / 240 Weight 73.5 kg Intake: Oral 240 / 240 Other: # Voids 2 Date of Last Bowel Movement 08/16/18 08/16/18 # Bowel Movements 0 - Constitutional no acute distress - Routine HEENT Exam Head: Present: normocephalic Eye: Present: EOMI, PERRL ENT: Present: mucous membranes moist - Routine Neck Exam Present: supple, full ROM, JVD - Routine Respiratory Exam Present: CTA bilaterally - Routine Cardiovascular Exam Present: RRR, S1, S2 - Routine Abdominal Exam Present: soft, normoactive bowel sounds Results 08/16/18 16:36 08/17/18 10:30 Cardiac Enzymes 08/16/18 08/16/18 Range/Units 16:36 16:36 Troponin I 0.03 (0.02-0.05) ng/mL B-Natriuretic Peptide 26 (0-100) pg/mL Coagulation 08/16/18 08/16/18 Range/Units 16:36 16:36 PT 14.4 H (9.8-11.6) sec APTT 41.5 H (23.4-31.7) sec B-Natriuretic Peptide 26 (0-100) pg/mL CBC 08/16/18 Range/Units 16:36 WBC 7.0 (4.0-11.0) th/mm3 RBC 4.61 (4.00-5.30) mil/mm3 Hgb 13.7 (11.6-15.3) gm/dL Hct 40.4 (35.0-46.0) % Plt Count 167 (150-450) th/mm3 Neut # (Auto) 3.6 (1.8-7.7) th/mm3 Lymph # (Auto) 2.6 (1.0-4.8) th/mm3 Forrest # (Auto) 0.4 (0.0-0.9) th/mm3 Eos # (Auto) 0.3 (0.0-0.4) th/mm3 Baso # (Auto) 0.1 (0.0-0.2) th/mm3 Comprehensive Metabolic Panel 08/16/18 08/17/18 Range/Units 16:36 10:30 Sodium 136 141 (136-145) meq/L Potassium 3.4 L 3.7 (3.5-5.1) meq/L Chloride 103 107 (98-107) meq/L Carbon Dioxide 25.5 27.5 (21.0-32.0) meq/L BUN 14 13 (7-18) mg/dL Creatinine 1.02 H 0.89 (0.50-1.00) mg/dL Calcium 8.9 8.7 (8.5-10.1) mg/dL Intake and Output 08/17/18 08/18/18 08/18/18 22:59 06:59 14:59 Intake Total 240 / 240 Balance 240 / 240 Intake: Oral 240 / 240 Other: # Voids 2 Date of Last Bowel Movement 08/16/18 # Bowel Movements 0 Weight 73.5 kg - Imaging and Cardiology Imaging: Impressions Chest X-Ray 08/16/18 16:33 CONCLUSION: Stable appearance with no acute cardiopulmonary disease. Assessment and Plan - Assessment (1) Atrial fibrillation Code(s): I48.91 - Unspecified atrial fibrillation Status: Acute - Plan Loading amiodarone ablation planned forlater. (1) Atrial fibrillation Qualifiers: Atrial fibrillation type: paroxysmal Qualified Code(s): I48.0 - Paroxysmal atrial fibrillation
--- NOTE | 2018-08-18 17:33 | P.PN ---
Subjective Interval history: Patient is seen lying in bed. She reports less feeling of palpitations since starting amiodarone. No chest pain or shortness of breath. No further shocks. She is concerned about possible side effects of long-term amiodarone and admits that this causes her some anxiety. No fever or chills. No nausea vomiting or diarrhea. Physical Exam Vital signs: Vital Signs 08/17/18 17:58 08/17/18 18:03 08/17/18 19:00 Temperature Pulse Rate 59 L 64 56 L Respiratory Rate Blood Pressure Pulse Oximetry 08/17/18 20:00 08/17/18 21:00 08/17/18 22:00 Temperature 98.1 F Pulse Rate 60 64 58 L Respiratory Rate 16 Blood Pressure 116/64 Pulse Oximetry 97 08/17/18 23:00 08/18/18 00:00 08/18/18 01:00 Temperature 98.6 F Pulse Rate 58 L 60 53 L Respiratory Rate 14 Blood Pressure 110/70 Pulse Oximetry 95 08/18/18 02:00 08/18/18 03:00 08/18/18 04:00 Temperature 98 F Pulse Rate 68 54 L 53 L Respiratory Rate 14 Blood Pressure 114/69 Pulse Oximetry 95 08/18/18 05:00 08/18/18 06:00 08/18/18 07:00 Temperature Pulse Rate 53 L 53 L 51 L Respiratory Rate Blood Pressure Pulse Oximetry 08/18/18 08:00 08/18/18 11:25 08/18/18 12:00 Temperature 97.6 F 97.4 F L Pulse Rate 60 54 L 54 L Respiratory Rate 14 Blood Pressure 120/68 111/61 Pulse Oximetry 97 93 L 08/18/18 16:00 08/18/18 16:27 Temperature 98.2 F Pulse Rate 62 58 L Respiratory Rate 16 Blood Pressure 118/62 Pulse Oximetry 98 Intake & Output 08/17/18 08/18/18 08/18/18 18:59 06:59 18:59 Intake Total 240 / 240 Balance 240 / 240 Weight 73.5 kg Intake: Oral 240 / 240 Other: # Voids 2 Date of Last Bowel Movement 08/16/18 08/16/18 08/16/18 # Bowel Movements 0 Narrative: GENERAL: Developed, well-nourished female in no acute distress. SKIN: Warm and dry. HEAD: Atraumatic. Normocephalic. CARDIOVASCULAR: Regular rate and rhythm. Mild chest wall tenderness. RESPIRATORY: No accessory muscle use. Clear to auscultation. Breath sounds equal bilaterally. GASTROINTESTINAL: Abdomen soft, non-tender, nondistended. + Bowel sounds MUSCULOSKELETAL: Extremities without clubbing, cyanosis, or edema. No obvious deformities. NEUROLOGICAL: Awake, alert, oriented x3. No obvious cranial nerve deficits. Motor grossly within normal limits. Five out of 5 muscle strength in the arms and legs. Normal speech. PSYCHIATRIC: Appropriate mood and affect; insight and judgment normal. Results - Labs CBC & Chem 7: 08/16/18 16:36 08/17/18 10:30 Assessment and Plan - Assessment (1) Shockable heart rhythm detected by automated external defibrillator Code(s): I49.9 - Cardiac arrhythmia, unspecified Status: Acute (2) Heart palpitations Code(s): R00.2 - Palpitations Status: Acute (3) Dizziness Code(s): R42 - Dizziness and giddiness Status: Acute (4) CHF (congestive heart failure) Code(s): I50.9 - Heart failure, unspecified Status: Acute - Plan 47-year-old female with past medical history significant for cardiomyopathy status post AICD placement in 2014, ventricular fibrillation, MVR, CHF, HTN, and anxiety who presents to the emergency department via [facility] after being shocked by defibrillator 3 times at home. Cardiomyopathy s/p AICD Hx V. tach CHF, not exacerbated Atrial fibrillation, rate controlled -Echo from 2015 with EF 35-40% -AICD interrogation confirms shock x 3 for VF -Consult jig worker for further recommendations, appreciate assistance -Cardiology considering ablation in future; amiodarone for now -Continue monitoring on telemetry for further episodes -Continue Xarelto, carvedilol, Lasix, spironolactone Hypertension -Continue home lisinopril, Coreg -(confirmed w/ pt that home dose is 18.5 mg twice daily) -BP stable, continue monitoring Hypokalemia; mild -Normalized with replacement Anxiety -Continue alprazolam as needed DVT prophylaxisXarelto Discharge planning: Likely home when cleared by cardiology
[2018-08-18] MEDS: ALPRAZolam 0.25 MG Tablet PO PRN ×2 (17:46→21:28)
[2018-08-19] MEDS: Furosemide 20 MG Tablet PO SCH (08:48)
[2018-08-19] MEDS: Sodium Chloride 0.9% 2 ML Flush BID IV.FLUSH SCH ×2 (08:49→21:16)
[2018-08-19] MEDS: Rivaroxaban 20 MG Tablet PO SCH (08:49)
[2018-08-19] MEDS: Carvedilol 6.25 MG Tablet PO SCH ×2 (08:49→21:16)
[2018-08-19] MEDS: Spironolactone 25 MG Tablet PO SCH (08:49)
[2018-08-19] MEDS: Lisinopril 5 MG Tablet PO SCH (08:49)
[2018-08-19] MEDS: Amiodarone 200 MG Tablet PO SCH ×2 (08:49→21:16)
[2018-08-19] MEDS: ALPRAZolam 0.25 MG Tablet PO PRN ×2 (10:23→21:20)
--- NOTE | 2018-08-19 12:13 | P.PN ---
Subjective Interval history: Patient is seen lying quietly in bed. She denies any further episodes of palpitations. No chest pain or shortness of breath. She does continue to struggle with episodes of anxiety. Physical Exam Vital signs: Vital Signs 08/18/18 16:00 08/18/18 16:27 08/18/18 18:00 Temperature 98.2 F Pulse Rate 62 58 L 62 Respiratory Rate 16 Blood Pressure 118/62 Pulse Oximetry 98 08/18/18 20:00 08/18/18 21:00 08/18/18 22:00 Temperature 97.6 F Pulse Rate 59 L 56 L 75 Respiratory Rate 22 Blood Pressure 108/61 Pulse Oximetry 99 08/18/18 23:00 08/19/18 00:00 08/19/18 01:00 Temperature 98.4 F Pulse Rate 62 64 74 Respiratory Rate 18 Blood Pressure 99/54 L Pulse Oximetry 98 08/19/18 02:00 08/19/18 03:00 08/19/18 04:00 Temperature 97.8 F Pulse Rate 66 61 56 L Respiratory Rate 20 Blood Pressure 107/55 L Pulse Oximetry 97 08/19/18 05:00 08/19/18 06:00 08/19/18 07:00 Temperature Pulse Rate 54 L 58 L 98 H Respiratory Rate Blood Pressure Pulse Oximetry 08/19/18 07:53 08/19/18 09:00 08/19/18 10:00 Temperature 98.4 F Pulse Rate 57 L 64 51 L Respiratory Rate 20 Blood Pressure 105/58 L Pulse Oximetry 97 08/19/18 11:00 08/19/18 11:11 Temperature 98.0 F Pulse Rate 50 L 50 L Respiratory Rate 20 Blood Pressure 107/64 Pulse Oximetry 99 Intake & Output 08/18/18 08/19/18 08/19/18 18:59 06:59 18:59 Intake Total 980 / 980 500 / 500 Output Total 750 / 750 Balance 230 / 230 500 / 500 Weight 71.5 kg Intake: Oral 980 / 980 500 / 500 Output: Urine 750 / 750 Other: # Voids 3 Date of Last Bowel Movement 08/16/18 08/16/18 08/16/18 # Bowel Movements 0 Narrative: GENERAL: Developed, well-nourished female in no acute distress. SKIN: Warm and dry. HEAD: Atraumatic. Normocephalic. CARDIOVASCULAR: Regular rate and rhythm. RESPIRATORY: No accessory muscle use. Clear to auscultation. Breath sounds equal bilaterally. GASTROINTESTINAL: Abdomen soft, non-tender, nondistended. + Bowel sounds MUSCULOSKELETAL: Extremities without clubbing, cyanosis, or edema. No obvious deformities. NEUROLOGICAL: Awake, alert, oriented x3. No obvious cranial nerve deficits. Motor grossly within normal limits. Normal speech. PSYCHIATRIC: Appropriate mood and affect; insight and judgment normal. Results - Labs CBC & Chem 7: 08/16/18 16:36 08/17/18 10:30 Assessment and Plan - Assessment (1) Shockable heart rhythm detected by automated external defibrillator Code(s): I49.9 - Cardiac arrhythmia, unspecified Status: Resolved (2) Heart palpitations Code(s): R00.2 - Palpitations Status: Resolved (3) Dizziness Code(s): R42 - Dizziness and giddiness Status: Resolved (4) CHF (congestive heart failure) Code(s): I50.9 - Heart failure, unspecified Status: Chronic - Plan 47-year-old female with past medical history significant for cardiomyopathy status post AICD placement in 2014, ventricular fibrillation, MVR, CHF, HTN, and anxiety who presents to the emergency department via [facility] after being shocked by defibrillator 3 times at home. Cardiomyopathy s/p AICD Hx V. tach; CHF, not exacerbated; Atrial fibrillation, rate controlled -Echo from 2014 with EF 35-40% -AICD interrogation confirms shock x 3 for VF -Consult administrator of home health for further recommendations, appreciate assistance -Cardiology considering ablation in future; amiodarone for now -tolerating well -Continue monitoring on telemetry for further episodes -Continue Xarelto, carvedilol, Lasix, spironolactone Hypertension -Continue home lisinopril, Coreg -(confirmed w/ pt that home dose is 18.5 mg twice daily) -Mild hypotension, continue monitoring. Consider holding lisinopril or reducing dose if indicated. Hypokalemia; mild -Normalized with replacement Anxiety -Continue alprazolam as needed DVT prophylaxisXarelto Discharge planning: Likely home when cleared by cardiology
[2018-08-20 00:40] VITALS: RESP 16
[2018-08-20] MEDS: Furosemide 20 MG Tablet PO SCH (08:35)
[2018-08-20] MEDS: Amiodarone 200 MG Tablet PO SCH (08:35)
[2018-08-20] MEDS: Lisinopril 5 MG Tablet PO SCH (08:35)
[2018-08-20] MEDS: Rivaroxaban 20 MG Tablet PO SCH (08:35)
[2018-08-20] MEDS: Spironolactone 25 MG Tablet PO SCH (08:35)
[2018-08-20] MEDS: Carvedilol 6.25 MG Tablet PO SCH (08:35)
--- NOTE | 2018-08-20 08:35 | P.PNCA ---
Subjective Interval history: Feels well in SR cleared for discharge to followup with Dr Bush Medications and Allergies Active Medications: Active Medications Acetaminophen (Tylenol) 650 mg PO Q4H PRN PRN Reason: Temp > 100.4 Al Hydroxide/Mg Hydroxide (Milk Of Magnesia Liq) 30 ml PO Q12H PRN PRN Reason: Mild Constipation Alprazolam (Xanax) 0.25 mg PO TID PRN PRN Reason: Anxiety Last Admin: 08/19/18 21:20 Dose: 0.25 mg Amiodarone HCl (Cordarone) 400 mg PO BID [facility] Stop: 08/24/18 09:01 Last Admin: 08/19/18 21:16 Dose: 400 mg Amiodarone HCl (Cordarone) 200 mg PO DAILY [facility] Bisacodyl (Dulcolax Supp) 10 mg RECTAL DAILY PRN PRN Reason: SEVERE CONSITIPATION Carvedilol (Coreg) 18.75 mg PO BID [facility] Last Admin: 08/19/18 21:16 Dose: 18.75 mg Furosemide (Lasix) 20 mg PO DAILY [facility] Last Admin: 08/19/18 08:48 Dose: 20 mg Lactulose (Lactulose Liq) 30 ml PO DAILY PRN PRN Reason: SEVERE CONSITIPATION Lisinopril (Prinivil) 5 mg PO DAILY [facility] Last Admin: 08/19/18 08:49 Dose: 5 mg Ondansetron HCl (Zofran Inj) 4 mg IV.PUSH Q6H PRN PRN Reason: NAUSEA OR VOMITING Rivaroxaban (Xarelto) 20 mg PO DAILY [facility] Last Admin: 08/19/18 08:49 Dose: 20 mg Sennosides (Senokot) 17.2 mg PO Q12H PRN PRN Reason: Moderate Constipation Sodium Chloride (Ns Flush) 2 ml IV.FLUSH BID [facility] Last Admin: 08/19/18 21:16 Dose: 2 ml Sodium Chloride (Ns Flush) 2 ml IV.FLUSH PRN PRN PRN Reason: FLUSH AFTER USING IV ACCESS Spironolactone (Aldactone) 25 mg PO DAILY [facility] Last Admin: 08/19/18 08:49 Dose: 25 mg Allergies Allergy/AdvReac Type Severity Reaction Status Date / Time No Known Allergies Allergy Verified 07/12/18 16:45 Home Medications Medication Instructions Recorded Confirmed Type alprazolam [Xanax] 0.25 mg PO TID PRN 05/26/18 08/16/18 History carvedilol [Coreg] 18.75 mg PO BID 05/26/18 08/16/18 History furosemide [Lasix] 20 mg PO DAILY 05/26/18 08/16/18 History lisinopril 5 mg PO DAILY 05/26/18 08/16/18 History rivaroxaban [Xarelto] 20 mg PO DAILY 05/26/18 08/16/18 History spironolactone 25 mg PO DAILY 05/26/18 08/16/18 History Physical Exam Vital signs: Vital Signs 08/19/18 09:00 08/19/18 10:00 08/19/18 11:00 Temperature Pulse Rate 64 51 L 50 L Respiratory Rate Blood Pressure Pulse Oximetry 08/19/18 11:11 08/19/18 12:00 08/19/18 13:00 Temperature 98.0 F Pulse Rate 50 L 54 L 55 L Respiratory Rate 20 Blood Pressure 107/64 Pulse Oximetry 99 08/19/18 14:00 08/19/18 15:00 08/19/18 15:09 Temperature 97.9 F Pulse Rate 57 L 66 54 L Respiratory Rate 18 Blood Pressure 91/57 L Pulse Oximetry 95 08/19/18 16:00 08/19/18 17:00 08/19/18 17:59 Temperature Pulse Rate 64 61 64 Respiratory Rate Blood Pressure Pulse Oximetry 08/19/18 19:00 08/19/18 20:00 08/19/18 21:00 Temperature 97.5 F L Pulse Rate 64 52 L 56 L Respiratory Rate 16 Blood Pressure 114/56 L Pulse Oximetry 96 08/19/18 22:00 08/19/18 23:00 08/20/18 00:00 Temperature 97.9 F Pulse Rate 52 L 52 L 52 L Respiratory Rate 16 Blood Pressure 101/53 L Pulse Oximetry 95 08/20/18 01:00 08/20/18 02:00 08/20/18 03:00 Temperature Pulse Rate 50 L 48 L 50 L Respiratory Rate Blood Pressure Pulse Oximetry 08/20/18 04:00 08/20/18 05:00 08/20/18 07:00 Temperature 98.1 F Pulse Rate 52 L 53 L 53 L Respiratory Rate 16 Blood Pressure 107/58 L Pulse Oximetry 93 L Intake & Output 08/19/18 08/20/18 08/20/18 18:59 06:59 18:59 Intake Total 960 / 960 480 / 480 Balance 960 / 960 480 / 480 Weight 74 kg Intake: Oral 960 / 960 480 / 480 Other: # Voids 7 4 Date of Last Bowel Movement 08/16/18 08/16/18 # Bowel Movements 0 0 No JVD Lungs clear No murmur or gallop No edema Results 08/16/18 16:36 08/17/18 10:30 Intake and Output 08/19/18 08/20/18 08/20/18 22:59 06:59 14:59 Intake Total 960 / 960 480 / 480 Balance 960 / 960 480 / 480 Intake: Oral 960 / 960 480 / 480 Other: # Voids 7 4 Date of Last Bowel Movement 08/16/18 08/16/18 # Bowel Movements 0 0 Weight 74 kg Assessment and Plan - Assessment (1) Atrial fibrillation Code(s): I48.91 - Unspecified atrial fibrillation Status: Acute - Plan Loading amiodarone ablation planned forlater. She is cleared for discharge. (1) Atrial fibrillation Qualifiers: Atrial fibrillation type: paroxysmal Qualified Code(s): I48.0 - Paroxysmal atrial fibrillation
[2018-08-20] MEDS: Sodium Chloride 0.9% 2 ML Flush BID IV.FLUSH SCH (08:37)
--- NOTE | 2018-08-20 08:49 | P.DS ---
Date of admission: 08/16/18 18:26 Primary care physician: UNKNOWN Brief History from admission: HPI as documented by the admitting team 47-year-old female with past medical history significant for cardiomyopathy status post AICD placement in 2014, ventricular fibrillation, MVR, CHF, HTN, and anxiety who presents to the emergency department via [facility] after being shocked by defibrillator 3 times at home. Patient reports that recently she has been under some stress since her son is requiring rehab and she has been trying to assist with arrangements. She reports that she was on the phone and shortly prior to being shot felt dizziness, lightheadedness and could feel her heart "speeding up". Patient states that early in the day she was also having some palpitations and attempted to take off of the Coreg however this did not stop AICD shock. She reports she has been having on and off shocks as well as what she describes as "weird sensations in my chest that are hard to describe". She states that it feels like there is "a basketball game going on in my chest " she also reports teeth and jaw pain when she has palpitations and feelings of her heart speeding up. Her ad operations specialist is Dr. Katheryn Bush and she was last seen in May and was due to follow-up with her again in August. She reports that ever since February of this year she feels that palpitations are more frequent and has noticed a trend that occurs between 2 and 7 PM. She reports being compliant with her medications. Denies any shortness of breath, chest pain, recent illnesses, nausea, vomiting or jaw pain. Patient update on day of discharge: Patient reports she is feeling great. Remained in sinus. No heart palpitations or chest pain. DS: Diagnosis - Discharge Diagnosis (1) Atrial fibrillation with RVR Status: Acute DS: Medications - Discharge Medications Prescriptions: amiodarone 200 mg PO DAILY 30 Days #30 tab DS: Summary Hospital Course: 47-year-old female with past medical history significant for cardiomyopathy status post AICD placement in 2014, ventricular fibrillation, MVR, CHF, HTN, and anxiety who presents to the emergency department via [facility] after being shocked by defibrillator 3 times at home. Evaluation and treatment course detailed below: Cardiomyopathy s/p AICD firing. Cardiomyopathy. -AICD interrogation confirms shock x 3 for VF -Cardiology followed the patient and she was loaded with Amiodarone. Rate controlled and no further episodes. -Continue Xarelto, carvedilol, Lasix, spironolactone - Continue Amiodarone and follow up outpatient with Cardiology. Hypertension -Continue home lisinopril, Coreg Hypokalemia; mild -Normalized with replacement Anxiety -Continue alprazolam as needed - Time Spent with Patient Total time spent providing and/or coordinating discharge services: Less than 30 minutes - Quality: VTE Deep Vein Thrombosis/Pulmonary Embolism Present on Admission: No Exam Vital signs: Vital Signs 08/19/18 09:00 08/19/18 10:00 08/19/18 11:00 Temperature Pulse Rate 64 51 L 50 L Respiratory Rate Blood Pressure Pulse Oximetry 08/19/18 11:11 08/19/18 12:00 08/19/18 13:00 Temperature 98.0 F Pulse Rate 50 L 54 L 55 L Respiratory Rate 20 Blood Pressure 107/64 Pulse Oximetry 99 08/19/18 14:00 08/19/18 15:00 08/19/18 15:09 Temperature 97.9 F Pulse Rate 57 L 66 54 L Respiratory Rate 18 Blood Pressure 91/57 L Pulse Oximetry 95 08/19/18 16:00 08/19/18 17:00 08/19/18 17:59 Temperature Pulse Rate 64 61 64 Respiratory Rate Blood Pressure Pulse Oximetry 08/19/18 19:00 08/19/18 20:00 08/19/18 21:00 Temperature 97.5 F L Pulse Rate 64 52 L 56 L Respiratory Rate 16 Blood Pressure 114/56 L Pulse Oximetry 96 08/19/18 22:00 08/19/18 23:00 08/20/18 00:00 Temperature 97.9 F Pulse Rate 52 L 52 L 52 L Respiratory Rate 16 Blood Pressure 101/53 L Pulse Oximetry 95 08/20/18 01:00 08/20/18 02:00 08/20/18 03:00 Temperature Pulse Rate 50 L 48 L 50 L Respiratory Rate Blood Pressure Pulse Oximetry 08/20/18 04:00 08/20/18 05:00 08/20/18 07:00 Temperature 98.1 F Pulse Rate 52 L 53 L 53 L Respiratory Rate 16 Blood Pressure 107/58 L Pulse Oximetry 93 L Intake & Output 08/19/18 08/20/18 08/20/18 18:59 06:59 18:59 Intake Total 960 / 960 480 / 480 Balance 960 / 960 480 / 480 Weight 74 kg Intake: Oral 960 / 960 480 / 480 Other: # Voids 7 4 Date of Last Bowel Movement 08/16/18 08/16/18 # Bowel Movements 0 0 Narrative: GENERAL: No acute distress. SKIN: Warm and dry. HEAD: Normocephalic. EYES: No scleral icterus. No injection or drainage. NECK: Supple, trachea midline. No JVD or lymphadenopathy. CARDIOVASCULAR: Regular rate and rhythm without murmurs, gallops, or rubs. RESPIRATORY: Breath sounds equal bilaterally. No accessory muscle use. GASTROINTESTINAL: Abdomen soft, non-tender, nondistended. MUSCULOSKELETAL: No cyanosis, or edema. Results Procedures completed during hospitalization: None - Impressions ITS Impressions Chest X-Ray 08/16/18 16:33 CONCLUSION: Stable appearance with no acute cardiopulmonary disease. Discharge Plan - Discharge Disposition Patient Disposition: Discharge Home - Discharge Condition Condition: Stable - Discharge Order Discharge Orders: Discharge Order (Routine); Ordered 08/20/18 Ordered By: Thony Calderon - Physicians Team Primary Care Provider: UNKNOWN, Attending Provider: Thony Calderon Other Providers: Katheryn Bush MD
[2018-08-20 09:11] VITALS: BP 115/68; TEMP 97.9; O2SAT 96
[2018-08-20 10:12] VITALS: PULSE 58
[2018-08-25] MEDS ORDERED: Amiodarone 200 MG Tablet PO SCH (09:00)
== END 2018-08-20 10:38 | disposition home or self-care (01) ==
LOC: NEDA 16:23 → NEPC 16:23 → NEPGCP 19:44 → HCPC 08-17 17:37
PROVIDERS: ADMIT Family Medicine; ATTEND Family Medicine